=== PATIENT | female | born 2000 | race Caucasian/White ===

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

== ENCOUNTER → 2019-12-31 | Outpatient (CLI) | payer OTHER ==
--- NOTE | 2019-12-31 12:21 | RADIOLOGY REPORT (SQ) ---
EXAM DESCRIPTION: SCOLIOSIS SERIES IMAGES COMPLETED DATE/TIME: 12/31/2019 11:53 am REASON FOR STUDY: M41.35; THORACONGENIC SCOLIOSIS OF THORACOLUMBAR REGION M41.35 THORACOGENIC SCOLI OSIS, THORACOLUMBAR REGION COMPARISON: 04/12/2017 NUMBER OF VIEWS: One view. TECHNIQUE: Standing AP exam of the thoracolumbar spine with measurement of the TRACY angles. LIMITATIONS: None. FINDINGS: GENERALIZED BONY FINDINGS: No anomalies. No worrisome bone lesions. THORACIC SPINE: Approximately 27 dextroscoliosis of the lower thoracic spine apex at the T9-10 level. LUMBAR SPINE: Approximately 25 lumbar levoscoliosis apex at the L1-2 level. CHANGE: Both appear increased compared with 2018. OTHER: No other significant findings. IMPRESSION: SCOLIOSIS WITH MEASUREMENTS ABOVE. TECHNICAL DOCUMENTATION: JOB ID: [id number] [employer]- All Rights Reserved Reading location - IP/workstation name: [email or web address]
== END ==
LOC: RAD 11:40
PROVIDERS: ATTEND Nurse Practitioner Family
DX: M41.35 Thoracogenic scoliosis, thoracolumbar region (principal)
CPT/HCPCS: 72082